=== PATIENT | female | born 1975 | race Caucasian/White ===

== ENCOUNTER 2016-12-28 11:13 | Emergency (ER) | payer BC, OTHER ==
[2016-12-28] MEDS ORDERED: cloNIDine 0.1 MG TAB ONE (12:27)
[2016-12-28 12:37] LABS: #Basophils 0.1 thou/uL (0.0-0.2); #Eosinphils 0.1 thou/uL (0.0-0.7); #Lymphocytes 3.5 thou/uL (1.20-3.40); #Monocytes 0.7 thou/uL (0.11-0.59); #Neutrophils 5.3 thou/uL (1.40-6.50); %Basophils 0.7 % (0.0-1.0); %Eosinophils 1.1 % (0.0-10.0); %Lymphocytes 36.1 % (21.0-51.0); %Monocytes 7.1 % (0.0-10.0); Hematocrit 40.4 % (36.0-47.0); Mean Platelet Volume 7.8 fL (7.4-10.4); Red Blood Cell (RBC) Count 4.65 mill/uL (4.20-5.40); White Blood Cell (WBC) Count 9.6 thou/uL (4.8-10.8)
[2016-12-28 12:46] LABS: ALT (SGPT) 16 U/L (8-55); AST (SGOT) 18 U/L (5-34); Alkaline Phosphatase 90 U/L (40-150); Anion Gap 12 mmol/L (10-20); BUN (Urea Nitrogen) 6 mg/dL (7.0-18.7); Bilirubin, Total 0.3 mg/dL (0.2-1.2); Calc. Creatinine Clearance 0 mL/min (70-130); Calcium 9.5 mg/dL (7.8-10.44); Carbon Dioxide 26 mmol/L (22-29); Chloride 105 mmol/L (98-107); Estimated GFR-MDRD 81; Globulin 3.1 g/dL (2.4-3.5); Magnesium 2.4 mg/dL (1.6-2.6); Protein, Total 7.4 g/dL (6.0-8.3)
[2016-12-28 12:49] LABS: Troponin I Less than 0.010 ng/mL (< 0.028)
== END 2016-12-28 13:41 | disposition home or self-care (01) ==
LOC: ERS 11:13
DX: I10 Essential (primary) hypertension (principal); G43.909 Migraine, unspecified, not intractable, without status migrainosus; F41.9 Anxiety disorder, unspecified; Z79.899 Other long term (current) drug therapy
CPT/HCPCS: 80053; 82553; 83735; 83880; 84484; 84703; 85025; 93005; 94760

== ENCOUNTER 2018-04-29 17:02 | Emergency (ER) | payer BC ==
[2018-04-29 17:27] LABS: #Basophils 0.1 thou/uL (0.0-0.2); #Eosinphils 0.2 thou/uL (0.0-0.7); #Lymphocytes 4.7 thou/uL (1.20-3.40); #Neutrophils 8.2 thou/uL (1.40-6.50); %Basophils 0.9 % (0.0-1.0); %Eosinophils 1.3 % (0.0-10.0); %Lymphocytes 32.9 % (21.0-51.0); %Monocytes 6.8 % (0.0-10.0); %Neutrophils 58.1 % (42.0-75.0); Hemoglobin 12.9 g/dL (12.0-16.0); Mean Corpuscular HGB CONC 32.8 g/dL (32.0-36.0); Mean Corpuscular Hemoglobin 28.3 pg (27.0-31.0); Mean Corpuscular Volume 86.3 fL (78.0-98.0); Mean Platelet Volume 7.6 fL (7.4-10.4); Platelet Count 360 thou/uL (130-400); RBC Distribution Width 12.2 % (11.5-14.5); Red Blood Cell (RBC) Count 4.58 mill/uL (4.20-5.40); White Blood Cell (WBC) Count 14.2 thou/uL (4.8-10.8)
[2018-04-29] MEDS ORDERED: Nitroglycerin 2% Ointment 1 INCH/1 GM Packet ONE (17:28)
[2018-04-29 17:45] LABS: ALT (SGPT) 20 U/L (8-55); AST (SGOT) 28 U/L (5-34); Albumin 4.5 g/dL (3.5-5.0); Alkaline Phosphatase 79 U/L (40-150); Anion Gap 11 mmol/L (10-20); BUN (Urea Nitrogen) 8 mg/dL (7.0-18.7); Bilirubin, Total 0.3 mg/dL (0.2-1.2); Calc. Creatinine Clearance 0 mL/min (70-130); Calcium 9.7 mg/dL (7.8-10.44); Carbon Dioxide 26 mmol/L (22-29); Chloride 104 mmol/L (98-107); Estimated GFR-MDRD 78; Globulin 2.9 g/dL (2.4-3.5); Glucose 106 mg/dL (70-105); Lipase 39 U/L (8-78); Potassium 3.4 mmol/L (3.5-5.1); Protein, Total 7.4 g/dL (6.0-8.3); Sodium 138 mmol/L (136-145)
--- NOTE | 2018-04-29 17:55 | RAD ---
PORTABLE UPRIGT FRONTAL CHEST RADIOGRAPH: 04/29/2018 HISTORY: Mid sternal chest pain. COMPARISON: None. FINDINGS: The lungs are clear. The heart and mediastinal contour is unremarkable. A focal area of calcification is noted, adjacent to the humeral head, on the left, laterally, suggest ing calcific tendinosis. IMPRESSION: No acute findings. POS: GIRMAH
[2018-04-29] MEDS ORDERED: Lidocaine Viscous Sol 2% 15 ml UD Cup ONE (18:07)
[2018-04-29] MEDS ORDERED: Mag-Al 1200 mg/1200 mg/30 ML UDCUP ONE (18:07)
--- NOTE | 2018-04-29 18:27 | ULT ---
RIGHT UPPER QUADRANT ULTRASOUND: 04/29/2018 HISTORY: Right upper quadrant pain. Epigastric pain. TECHNIQUE: Multiplanar vance-scale sonographic imaging of the right upper quadrant provided. FINDINGS: The hepatic parenchyma is mildly heterogeneous and echogenic. The imaged pancreas is unremarkable. The body and tail are obscured by bowel gas. No discrete focal liver lesion is identified. The budget record clerk reports a negative Riley sign. No gallbladder wall thickening or pericholecystic fl uid. No gallstones noted. The CBD measures 3 mm, within normal limits. The right kidney measures 1 1.4 cm in craniocaudal dimension and demonstrates no stone, hydronephrosis, or mass. IMPRESSION: No sonographic evidence of cholecystitis, cholelithiasis, or biliary dilatation. POS: [id number]
[2018-04-29 20:09] LABS: Troponin I Less than 0.010 ng/mL (< 0.028)
[2018-04-29] MEDS ORDERED: Acetaminophen 500 MG TAB ONE (20:15)
== END 2018-04-29 21:00 | disposition home or self-care (01) ==
LOC: ERS 17:02
DX: R07.9 Chest pain, unspecified (principal); I10 Essential (primary) hypertension; Z79.899 Other long term (current) drug therapy
CPT/HCPCS: 36415; 71045; 76705; 80053; 83605; 83690; 84484; 85025; 93005